=== PATIENT | female | born 1990 | race American Indian/Alaskan Native ===

== ENCOUNTER 2018-05-01 08:19 | Inpatient (IN) | payer SELFPAY ==
--- NOTE | 2018-05-01 12:22 | Ultrasound Report ---
ULTRASOUND BIOPHYSICAL PROFILE: History: well being Technique: Transabdominal ultrasound with Doppler interrogation. 2 - breathing movements 2 - movements 0 - posture and tone 2 - Qualitative amniotic fluid volume 6 - TOTAL SCORE OF POSSIBLE 8 Heart Rate (bpm) 162
[2018-05-01] MEDS ORDERED: SUBLIMAZE IV ONE ×2 (13:33→16:36)
[2018-05-01] MEDS ORDERED: LACTATED RINGERS 1,000 ML ONE (13:51)
[2018-05-01] MEDS ORDERED: LACTATED RINGERS 1,000 ML IV SCH ×2 (15:00→19:00)
[2018-05-01] MEDS ORDERED: PITOCin/NS 20 UNIT/1000ML DRIP 20,000 MILLIUNITS/1,000 ML BAG IV ONE (16:53)
[2018-05-01 16:59] LABS: Basophils % (Auto) 0.2 % (0.0-1.8); Eosinophils % (Auto) 0.1 % (0.0-4.3); Hematocrit 41.1 % (30.3-42.9); Hemoglobin 13.8 gm/dl (10.1-14.3); Lymphocytes # (Auto) 1.2 K/mm3 (1.2-5.4); Lymphocytes % (Auto) 11.3 % (13.4-35.0); Mean Corpuscular HGB Conc 34 % (30-34); Mean Corpuscular Hemoglobin 28 pg (28-32); Mean Corpuscular Volume 82 fl (79-97); Monocytes # (Auto) 0.9 K/mm3 (0.0-0.8); Monocytes % (Auto) 8.3 % (0.0-7.3); Platelet Count 150 K/mm3 (140-440); Red Blood Count 5.01 M/mm3 (3.65-5.03); Red Cell Distribution Width 16.4 % (13.2-15.2)
[2018-05-01] MEDS ORDERED: XYLOCAINE MPF 2% ONE (17:10)
--- NOTE | 2018-05-01 17:56 | History and Physical Report ---
History of Present Illness Date of examination: 05/01/18 Date of admission: 05/01/18 10:24 Chief complaint: contractions History of present illness: Pt is 28 year old female primigravida CHAYITO 04/26/18 at 40w5d who presents with regular contractions since earlier this morning. She denies leakage of fluid or vaginal bleeding. She has had care at [facility] since transfer into care at 30 wks that has been uncomplicated. She is GBS negative. Past History Past Medical History: no pertinent history Past Surgical History: no surgical history Family/Genetic History: hypertension Social history: no significant social history, - Obstetrical History Expected Date of Delivery: 04/26/18 Actual Gestation: 40 Week(s) 5 Day(s) : 1 Medications and Allergies Allergies Allergy/AdvReac Type Severity Reaction Status Date / Time No Known Allergies Allergy Unverified 05/01/18 10:24 Home Medications Medication Instructions Recorded Confirmed Last Taken Type Omeprazole 20 mg PO DAILY 05/01/18 05/01/18 04/30/18 09:00 History Pnv No.95/Ferrous Fum/Folic AC 1 each PO DAILY 05/01/18 05/01/18 04/30/18 10:30 History [Prenavite Tablet] Active Meds: Active Medications Lactated Ringer's (Lactated Ringers) 1,000 mls @ 125 mls/hr IV DIRECT BEATRIZ Review of Systems All systems: negative - Vital Signs Vital signs: Vital Signs Temp Pulse Resp BP Pulse Ox 97.5 F L 92 H 20 110/66 100 05/01/18 08:37 05/01/18 08:37 05/01/18 08:37 05/01/18 08:37 05/01/18 08:37 Temp Pulse Resp BP Pulse Ox 97.3 F L 78 18 106/57 98 05/01/18 14:00 05/01/18 15:38 05/01/18 14:26 05/01/18 15:38 05/01/18 15:35 - Physical Exam Abdomen: Positive: soft (gravid ) Genitourinary (Female): Positive: normal external genitalia Uterus: Positive: enlarged (gravid ) Extremities: Positive: edema (trace) - Obstetrical FHR: category 2 Uterine Contraction Monitor Mode: External Cervical Dilatation: 8 Cervical Effacement Percentage: 80 station: -1 Uterine Contraction Pattern: Irregular Uterine Tone Measurement Phase: Resting Uterine Contraction Intensity: Strong/Firm Results Result Diagrams: 05/01/18 16:30 Abnormal lab results 05/01/18 Range/Units 16:30 RDW 16.4 H (13.2-15.2) % Lymph % (Auto) 11.3 L (13.4-35.0) % Reeves % (Auto) 8.3 H (0.0-7.3) % Reeves # 0.9 H (0.0-0.8) K/mm3 Seg Neutrophils % 80.1 H (40.0-70.0) % Seg Neutrophils # 8.5 H (1.8-7.7) K/mm3 All other labs normal. Assessment and Plan A: IUP at 40w5d Active labor Obesity GBS negative P: Admit to labor and delivery AROM- meconium Routine intrapartum care
[2018-05-01] MEDS ORDERED: PITOCin/NS 30 UNIT/500ML 30 UNITS/500 ML BAG IV SCH ×2 (18:00→20:00)
[2018-05-01] MEDS ORDERED: MINERAL OIL PO PRN (18:02)
[2018-05-01] MEDS ORDERED: STADOL IV PRN (18:02)
[2018-05-01] MEDS ORDERED: NARCAN 0.4 MG/1 ML IV PRN ×4 (18:02→23:44)
[2018-05-01] MEDS ORDERED: BRETHINE IVP PRN (18:02)
[2018-05-01] MEDS ORDERED: BRETHINE SUB-Q PRN (18:02)
[2018-05-01] MEDS ORDERED: SUBLIMAZE IV PRN (18:02)
[2018-05-01] MEDS ORDERED: ZOFRAN IV PRN ×2 (18:02→23:44)
[2018-05-01] MEDS ORDERED: XYLOCAINE 2% INFILTRATI ONE (18:02)
[2018-05-01] MEDS ORDERED: PITOCin/NS 20 UNIT/1000ML DRIP 20 UNITS/1,000 ML BAG IV SCH ×2 (19:00→23:45)
[2018-05-01] MEDS ORDERED: REGLAN IV ONE (22:00)
[2018-05-01] MEDS ORDERED: TORADOL IV PRN ×2 (23:33)
[2018-05-01] MEDS ORDERED: MORPHINE IV PRN ×2 (23:33)
[2018-05-01] MEDS ORDERED: MILK OF MAGNESIA PO PRN (23:33)
[2018-05-01] MEDS ORDERED: NORCO 5/325 PO PRN (23:33)
[2018-05-01] MEDS ORDERED: TYLENOL PO PRN (23:33)
[2018-05-01] MEDS ORDERED: SENOKOT PO PRN (23:33)
[2018-05-01] MEDS ORDERED: TUCKS PAD TP PRN (23:33)
[2018-05-01] MEDS ORDERED: MYLICON PO PRN (23:33)
[2018-05-01] MEDS ORDERED: REGLAN IV PRN (23:41)
[2018-05-01] MEDS ORDERED: BENADRYL IV PRN (23:41)
[2018-05-01] MEDS ORDERED: PHENERGAN PR PRN ×2 (23:41→23:44)
--- NOTE | 2018-05-01 23:42 | Anesthesia Consultation ---
Anesthesia Consult and Med Hx Date of service: 05/01/18 - Airway Anesthetic Teeth Evaluation: Good ROM Head & Neck: Adequate Mental/Hyoid Distance: Adequate Mallampati Class: Class II Intubation Access Assessment: Good - Pulmonary Exam CTA: Yes - Cardiac Exam Cardiac Exam: No Murmur - Pre-Operative Health Status ASA Pre-Surgery Classification: ASA2 Proposed Anesthetic Plan: Epidural - Pulmonary Hx Asthma: No COPD: No Hx Pneumonia: No - Cardiovascular System Hx Hypertension: No - Central Nervous System Hx Seizures: No Hx Psychiatric Problems: No - Endocrine Hx Renal Disease: No Hx End Stage Renal Disease: No Hx Hypothyroidism: No Hx Hyperthyroidism: No - Hematic Hx Anemia: No Hx Sickle Cell Disease: No - Other Systems Hx Alcohol Use: No
--- NOTE | 2018-05-01 23:42 | Post Anesthesia Evaluation ---
- Post Anesthesia Evaluation Patient Participated: Yes Airway Patent: Yes Stable Respiratory Function: Yes Nausea/Vomiting: No Temp > 96.8F: Yes Pain Manageable: Yes Adequeate Hydration: Yes Anesthesia Complications: No
[2018-05-01] MEDS ORDERED: PHENERGAN PO PRN (23:44)
[2018-05-01] MEDS ORDERED: DILAUDID IV PRN (23:44)
--- NOTE | 2018-05-01 23:44 | Procedure Note ---
OB Delivery Note - Delivery Date of Delivery: 05/01/18 Surgeon: MACARENA ELISE Estimated blood loss: other (800cc) - Section Preop diagnosis: nonreassuring FHR tracing, other (intolerance to labor ) Postop diagnosis: same Disposition: PACU Complications: none Narrative: see op note - A at 1 minute: 8 at 5 minutes: 9 Gender: Female (7 pounds 15 oz)
[2018-05-01] MEDS ORDERED: NACL 0.9% 1000 ML 1,000 ML IV SCH (23:45)
[2018-05-01] MEDS ORDERED: SODIUM CHLORIDE FLUSH SYRINGE 10 ML IV PRN ×2 (23:45)
[2018-05-01] MEDS ORDERED: D5LR 1,000 ML IV SCH (23:45)
[2018-05-01] MEDS ORDERED: DILAUDID PCA 6MG/30ML IV SCH (23:45)
--- NOTE | 2018-05-01 23:49 | Operative Report ---
Operative Report Operative Report: DATE OF OPERATION: 05/01/2018 PREOPERATIVE DIAGNOSES: 1. Intrauterine gestation at 40+4 weeks, in active labor, second stage. 2. Intolerance to labor 3. NRFHT POSTOPERATIVE DIAGNOSES: 1-3. ARACELI 4. Nuchal cord OPERATION PERFORMED: Primary low transverse section. SURGEON: Yvonne Lopez ANESTHESIA: Epidural . COMPLICATIONS: None. ESTIMATED BLOOD LOSS: 800 mL. DRAINS: Patel catheter to the bladder. SPECIMENS TO PATHOLOGY: Cord blood for routine testing. OPERATIVE FINDINGS: A viable female with Apgars of 8 and 9 and birthweight of 7 pounds 15 ounces was delivered from a cephalic presentation, The cord contained 3 vessels. There was normal anterior fundal placenta. The amniotic fluid was clear. The uterus ( small fibroids -multiple) , fallopian tubes and ovaries were normal. DESCRIPTION OF OPERATION: The patient was brought to the operating suite in stable condition with epidural anesthesia on board and an indwelling catheter in place in the bladder. The patient was placed supine on the operating room table and rolled to her left side with a wedge. The abdomen was prepped and draped in standard fashion for section. After testing with forceps to assure an adequate anesthetic level, the surgery was commenced. We had counseled the patient extensively regarding the risks of the surgery including but not limited to stroke, embolus, phlebitis, pain, infection, hemorrhage, as well as injury to the and the internal organs such as the bowel, bladder, blood vessels, nerves, kidneys, ureters and pelvic organs. The patient was aware of the postoperative morbidity issues and recovery timeframes. The patient was aware she can form adhesions, which can result in obstruction of loop of bowel or ureter or chronic pain. She was aware that should she have hemorrhage and require blood transfusion, there was a small chance for exposure to hepatitis or HIV disease. With the scalpel, a Pfannenstiel skin incision was made. Dissection was carried down sharply through the subcutaneous tissues and fascia in a transverse plane with the scalpel, electrocautery and curved Rowland scissors. The fascia was sharply freed up superiorly and inferiorly from the underlying rectus muscles, which were bluntly and sharply divided. The peritoneum was entered carefully in a clear space with a curved hemostat. The peritoneal incision was then extended vertically with Metzenbaum scissors. A retractor and bladder blade were placed. A bladder flap was created by incising transversely through the peritoneum and vesicouterine fold and then bluntly dissecting the bladder distally. With the scalpel, a low transverse hysterotomy was commenced. The serosa and myometrium were scored with the scalpel. The uterine cavity was actually entered bluntly with a curved hemostat. The uterine incision was then extended laterally with the paraffin machine operator's fingers. An intrauterine hand was placed and the head of the was brought up out of the pelvis into the uterine incision. With fundal pressure, he was delivered without difficulty. The nasopharynx and oropharynx were suctioned. The cord was doubly clamped and transected. The was then handed off to the nursery personnel. Apgars were good at 8 and 9.. Intravenous Pitocin administered The placenta was manually removed. The uterine cavity was then curetted with a dry sponge and freed of the remaining membranes. The edges of the uterine incision were grasped with Ellington clamps. With the massage and the Pitocin, the uterus began to firm up normally. The uterine incision was then closed in 2 layers of 0 Vicryl sutures. The first suture was placed to the endometrium and myometrium. The second suture was placed through the endopelvic fascia and also reincorporated the bladder flap peritoneum. Peritoneal lavage was then performed. The pelvis and gutters were irrigated and suctioned and cleared of all blood and clots and amniotic fluid. The uterine incision was reinspected to assure hemostasis. The uterus, tubes and ovaries were inspected and were normal. Once we were satisfied with the hemostasis using surgiceland tissel. , attention was turned to closure of the abdominal incision. The peritoneum, muscles and fascia were closed in layers using 0-Vicryl sutures. The subcutaneous tissue was closed with 3-0 plain sutures. The skin was closed with a subcuticular suture of 4-0 Vicryl followed by benzoin, Steri-Strips and a Telfa dressing. The patient was moved to the recovery room in stable condition with the Patel catheter draining clear urine. Instruments, sponge and needle counts were reported as correct. Estimated blood loss was 800 mL. There were no complications.
[2018-05-02] MEDS ORDERED: BICITRA ONE (01:34)
[2018-05-02] MEDS ORDERED: PEPCID IV ONE (01:35)
[2018-05-02] MEDS ORDERED: ANCEF/STERILE WATER 2 GM/20 ML 2 GM/20 ML SYRINGE IV ONE (01:35)
[2018-05-02] MEDS: DILAUDID IV PRN ×2 (02:40→11:42)
--- NOTE | 2018-05-02 08:10 | Progress Note ---
Assessment and Plan - Patient Problems (1) intolerance to labor, delivered, current hospitalization Current Visit: Yes Status: Acute Plan to address problem: Routine post operative care (2) Status post delivery Current Visit: Yes Status: Acute Subjective - Subjective Date of service: 05/02/18 Interval history: The patient appears comfortable. She is tolerating sips and chips without difficulty. Patel remains in place and she was still receiving IV pain medicine. Patient reports: no voiding normally [place]: doing well Objective - Vital Signs Latest vital signs: Vital Signs Temp Pulse Resp BP BP Pulse Ox 05/02/18 04:00 98.6 F 74 18 114/78 05/02/18 02:00 98.7 F 62 18 120/76 05/02/18 00:45 82 18 128/71 05/02/18 00:30 72 18 125/72 05/02/18 00:15 65 21 110/69 05/02/18 00:05 68 17 120/64 05/02/18 00:00 68 18 110/69 05/01/18 23:50 68 17 108/66 05/01/18 23:45 98.1 F 72 16 103/67 05/01/18 22:40 80 20 119/69 100 05/01/18 22:23 20 119/69 100 05/01/18 21:55 84 100 05/01/18 21:50 82 100 05/01/18 21:45 90 100 05/01/18 21:40 95 H 100 05/01/18 21:35 121 H 100 05/01/18 21:30 93 H 100 05/01/18 21:25 94 H 100 05/01/18 21:21 79 130/67 05/01/18 21:20 106 H 100 05/01/18 21:15 84 100 05/01/18 21:10 77 100 05/01/18 21:05 77 100 05/01/18 21:03 93 H 92 05/01/18 21:00 92 H 100 05/01/18 20:55 76 100 05/01/18 20:50 100 H 100 05/01/18 20:45 96 H 100 05/01/18 20:40 86 100 05/01/18 20:35 87 100 05/01/18 20:30 84 100 05/01/18 20:25 101 H 100 05/01/18 20:20 81 100 10/01/18 20:15 78 100 05/01/18 20:10 79 98 05/01/18 18:59 98.7 F 22 05/01/18 18:56 88 112/81 05/01/18 18:26 74 112/62 05/01/18 17:56 98.4 F 78 111/57 05/01/18 15:38 78 106/57 05/01/18 15:35 73 98 05/01/18 15:34 79 94 05/01/18 15:30 75 99 05/01/18 15:25 77 100 05/01/18 15:23 77 92 05/01/18 15:20 77 99 05/01/18 15:15 71 98 05/01/18 15:10 77 100 05/01/18 15:05 75 95 05/01/18 15:00 79 99 05/01/18 14:55 92 H 100 05/01/18 14:50 80 98 05/01/18 14:45 79 98 05/01/18 14:40 79 98 05/01/18 14:35 79 98 05/01/18 14:30 77 98 05/01/18 14:26 18 05/01/18 14:25 80 98 05/01/18 14:23 85 94 05/01/18 14:20 86 99 05/01/18 14:00 97.3 F L 18 05/01/18 13:49 77 124/77 05/01/18 08:37 97.5 F L 92 H 20 110/66 100 Intake and Output 05/01/18 05/02/18 05/02/18 22:59 06:59 14:59 Intake Total 300 Output Total 700 3800 Balance -700 -3500 Intake: Intake, Free Water 300 Output: Urine 700 3800 Indwelling Catheter 900 Uretheral (Patel) 2700 Void 700 Other: Total, Output Amount 700 900 - Exam Abdomen: Present: normal appearance, soft Incision: Present: dressed - Labs Labs: Abnormal lab results 05/01/18 Range/Units 16:30 RDW 16.4 H (13.2-15.2) % Lymph % (Auto) 11.3 L (13.4-35.0) % Bennett % (Auto) 8.3 H (0.0-7.3) % Bennett # 0.9 H (0.0-0.8) K/mm3 Seg Neutrophils % 80.1 H (40.0-70.0) % Seg Neutrophils # 8.5 H (1.8-7.7) K/mm3
[2018-05-02] MEDS: FEOSOL PO SCH (10:00)
[2018-05-02] MEDS: PRENATAL VITAMIN PO SCH (10:00)
[2018-05-02] MEDS: PEPCID IV SCH (10:11)
[2018-05-02] MEDS: LANSINOH TP PRN (10:12)
[2018-05-02 15:03] LABS: Hematocrit 31.6 % (30.3-42.9); Hemoglobin 10.4 gm/dl (10.1-14.3)
[2018-05-02] MEDS: PERCOCET 5/325 PO PRN ×2 (17:56→23:12)
[2018-05-02] MEDS ORDERED: M-M-R II VACCINE SUB-Q ONE (23:35)
[2018-05-03] MEDS: MOTRIN PO PRN ×3 (00:39→12:05)
[2018-05-03] MEDS ORDERED: BOOSTRIX IM ONE (06:00)
[2018-05-03] MEDS: PERCOCET 5/325 PO PRN ×4 (06:22→23:37)
--- NOTE | 2018-05-03 11:32 | Progress Note ---
Assessment and Plan A: POD#2 s/p primary section at term, Delayed return of bowel function P: Continue routine care. Begin bowel regimen. Anticipate discharge tomorrow. Subjective - Subjective Date of service: 05/03/18 Principal diagnosis: s/p primary section Interval history: Pt reports abdominal distention. No nausea. Tolerating regular diet. Patient reports: appetite normal, voiding normally, pain well controlled, flatus (minimal ), ambulating normally, no bowel movement [place]: doing well Objective - Vital Signs Latest vital signs: Vital Signs Temp Pulse Resp BP BP Pulse Ox 05/03/18 07:43 99.2 F 87 18 97/52 98 05/03/18 06:22 18 05/03/18 06:21 18 05/03/18 01:39 18 05/03/18 00:39 18 05/03/18 00:12 18 05/03/18 00:00 98.6 F 74 16 118/69 05/02/18 23:12 18 05/02/18 17:56 20 05/02/18 17:50 20 05/02/18 16:00 16 05/02/18 15:37 97.9 F 95 H 18 106/68 96 05/02/18 13:50 20 05/02/18 12:00 20 05/02/18 11:42 20 05/02/18 11:41 98.7 F 90 18 103/53 95 Intake and Output 05/02/18 05/03/18 05/03/18 22:59 06:59 14:59 Intake Total 540 300 Output Total 1200 Balance -660 300 Intake: Oral 540 Intake, Free Water 300 Output: Urine 1200 Indwelling Catheter 600 Void 600 Other: Total, Intake Amount 540 Total, Output Amount 600 - Exam Breasts: Present: deferred Cardiovascular: Present: Regular rate Lungs: Present: Clear to auscultation Abdomen: Present: soft, distention (moderate, tympanic ) Uterus: Present: fundal height at umbilicus Extremities: Present: edema (trace) Incision: Present: dressed
[2018-05-03] MEDS: MILK OF MAGNESIA PO SCH ×3 (12:05→23:38)
[2018-05-03] MEDS: FEOSOL PO SCH (12:05)
[2018-05-03] MEDS: PRENATAL VITAMIN PO SCH (12:05)
[2018-05-03] MEDS: PEPCID IV SCH (13:18)
[2018-05-04] MEDS: PEPCID IV SCH (00:51)
[2018-05-04] MEDS: LANSINOH TP PRN (00:58)
[2018-05-04] MEDS: MILK OF MAGNESIA PO SCH (06:01)
[2018-05-04] MEDS: FEOSOL PO SCH (10:06)
[2018-05-04] MEDS: PERCOCET 5/325 PO PRN ×2 (10:07→16:38)
[2018-05-04] MEDS: MOTRIN PO PRN ×2 (10:08→16:39)
[2018-05-04] MEDS: PRENATAL VITAMIN PO SCH (10:09)
--- NOTE | 2018-05-04 11:44 | Progress Note ---
Assessment and Plan O; VSS Af Temp 110.2 yesterday, none since PP H/H: 10.4/31.6 A: Stable POD #2 P: Routine discharge orders Subjective - Subjective Date of service: 05/04/18 Principal diagnosis: s/p primary section Patient reports: appetite normal, voiding normally, pain well controlled, flatus , ambulating normally [place]: doing well, nursing well Objective - Vital Signs Latest vital signs: Vital Signs Temp Pulse Resp BP BP Pulse Ox 05/04/18 08:05 98.7 F 95 H 18 137/87 94 05/04/18 01:31 98.8 F 83 18 113/77 05/03/18 23:37 20 05/03/18 17:07 100.2 F H 95 H 18 116/71 100 Intake and Output 05/03/18 05/04/18 05/04/18 22:59 06:59 14:59 Intake Total 360 240 Balance 360 240 Intake: Intake, Free Water 360 240 Other: # Voids Void 2 1 - Exam Breasts: Present: normal, Cardiovascular: Present: Regular rate Lungs: Present: Normal air movement Abdomen: Present: normal appearance, soft. Absent: distention, tenderness Uterus: Present: normal, firm, fundal height below umbilicus. Absent: bogginess Extremities: Present: normal. Absent: edema Incision: Present: normal, dry, intact
--- NOTE | 2018-05-04 11:45 | Discharge Summary ---
Providers - Providers Date of Admission: 05/01/18 10:24 Date of discharge: 05/04/18 Attending physician: MACARENA ELISE MD Primary care physician: MACARENA ELISE MD Hospitalization Reason for admission: active labor, IUP at term Delivery: Procedure: section, primary low transverse Laceration: none Incision: normal, dry, intact Other procedures: none complications: none Discharge diagnosis: IUP at term delivered [place] baby: female Condition at discharge: Good Disposition: DC-01 TO HOME OR SELFCARE Plan - Discharge Medications Prescriptions: Ferrous Sulfate 325 mg PO BID #30 tablet. Ibuprofen [Motrin] 600 mg PO Q8H PRN #30 tablet PRN Reason: Pain oxyCODONE /ACETAMINOPHEN [Percocet 5/325] 1 tab PO Q6HR PRN #30 tablet PRN Reason: Pain - Provider Discharge Summary Activity: routine, no sex for 6 weeks, no heavy lifting 4 weeks, no strenuous exercise Diet: routine Additional instructions: [] Smoking cessation referral if applicable(refer to patient education folder for contact #) [] Refer to [facility]'s [facility] Booklet Call your doctor immediately for: * Fever > 100.5 * Heavy vaginal bleeding ( >1 pad per hour) * Severe persistent headache * Shortness of breath * Reddened, hot, painful area to leg or breast * Drainage or odor from incision. * Keep incision clean and dry at all times and follow doctor's instructions regarding bathing/showering - Follow up plan Follow up: MACARENA ELISE MD [Primary Care Provider] - 14 Days
[2018-05-04 20:24] VITALS: BP 123/87
== END 2018-05-04 19:00 | disposition home or self-care (01) | DRG 787 ==
LOC: TRG 08:19 → LD 10:24 → OBSVTOIN 10:24 → TRG 13:16 → OB 05-02 01:50
PROVIDERS: ADMIT Obstetrics & Gynecology; ATTEND Obstetrics & Gynecology
PROC: 10D00Z1 Extraction of Products of Conception, Low, Open Approach (ICD-10-PCS; principal; 2018-05-01)
PROC: 10907ZC Drainage of Amniotic Fluid, Therapeutic from Products of Conception, Via Natural or Artificial Opening (ICD-10-PCS; 2018-05-01)
PROC: 3E0234Z Introduction of Serum, Toxoid and Vaccine into Muscle, Percutaneous Approach (ICD-10-PCS; 2018-05-02)
DX: O76 Abnormality in fetal heart rate and rhythm complicating labor and delivery (principal); D61.9 Aplastic anemia, unspecified; O99.03 Anemia complicating the puerperium; O69.81X0 Labor and delivery complicated by cord around neck, without compression, not applicable or unspecified; O34.13 Maternal care for benign tumor of corpus uteri, third trimester; D25.9 Leiomyoma of uterus, unspecified; O99.214 Obesity complicating childbirth; E66.9 Obesity, unspecified; O77.0 Labor and delivery complicated by meconium in amniotic fluid; Z3A.40 40 weeks gestation of pregnancy; Z37.0 Single live birth; Z82.49 Family history of ischemic heart disease and other diseases of the circulatory system; Z68.35 Body mass index [BMI] 35.0-35.9, adult; Z23 Encounter for immunization
CPT/HCPCS: 36415; 76819; 85014; 85018; 85025; 86592; 86762; 86850; 86900; 86901; 88307; 99211; A6250; G0463; J0690; J1170; J2590; J2765; J3010; J7120; J7121